=== PATIENT | male | born 1935 | race Caucasian/White ===

== ENCOUNTER 2021-04-29 12:16 | Emergency (ER) | payer MEDICARE, OTHER ==
[~2021-04-29] VITALS: Ht 185.4 cm; Wt 80.7 kg
[2021-04-29] MEDS ORDERED: ACETAMINOPHEN 325 MG TAB PO ONE (12:45)
[2021-04-29] MEDS ORDERED: CASIRIVIMAB/IMDEVIMAB 10 ML in SODIUM CHLORIDE 0.9% 100 ML IV ONE (12:45)
[2021-04-29 15:01] VITALS: BP 137/80
== END 2021-04-29 15:07 | disposition home or self-care (01) ==
LOC: ER 12:21
DX: R05 Cough (principal); R11.0 Nausea; U07.1 COVID-19; R94.31 Abnormal electrocardiogram [ECG] [EKG]
CPT/HCPCS: 93005; 99283; J7050; U0002

== ENCOUNTER 2023-10-06 10:44 | Emergency (ER) | payer MEDICARE, OTHER ==
[~2023-10-06] VITALS: Ht 185.4 cm; Wt 77.1 kg
[~2023-10-06 10:44] MED LIST: DOXYCYCLINE HY100 MG PO; ULTRAM 50MG50 MG PO
[2023-10-06 10:57] VITALS: O2SAT 98
== END 2023-10-06 11:06 | disposition home or self-care (01) ==
LOC: FSED 10:49
DX: Z48.02 Encounter for removal of sutures (principal)
CPT/HCPCS: 99281